=== PATIENT | female | born 1965 ===

== ENCOUNTER 2023-04-18 11:05 | Day surgery (SDC) | payer OTHER ==
[~2023-04-18] VITALS: Ht 149.9 cm; Wt 63.5 kg
[~2023-04-18 11:05] MED LIST: LOSARTAN POTASS50 MG PO; METFORMIN HCL500 M3 PO
[2023-04-18] MEDS ORDERED: CEFAZOLIN SODIUM 1,000 MG VIAL ONE (13:03)
[2023-04-18] MEDS ORDERED: CEFAZOLIN SODIUM 1,000 MG VIAL IV ONE (14:15)
[2023-04-18] MEDS ORDERED: SUGAMMADEX SODIUM 200 MG/2 ML VIAL IV ONE ×2 (14:46→15:00)
== END 2023-04-18 18:05 | disposition home or self-care (01) ==
LOC: CIR.AMB 11:05
PROVIDERS: ATTEND Orthopaedic Surgery
DX: S52.122A Displaced fracture of head of left radius, initial encounter for closed fracture (principal); S53.432A Radial collateral ligament sprain of left elbow, initial encounter; Z20.822 Contact with and (suspected) exposure to COVID-19
CPT/HCPCS: 24666; 24343; L8699